=== PATIENT | male | born 1955 | race Caucasian/White ===

== ENCOUNTER → 2017-01-20 | Outpatient (REF) | payer SELFPAY ==
[~2017-01-20] VITALS: Ht 188 cm; Wt 88.6 kg
[~2017-01-20] MED LIST: ASPI-586 PO; CIPROFLOXACIN (CIPRO) 500 MG TABLET PO ONE; OXYM30MI NS
== END ==
LOC: EUOP 23:55
PROVIDERS: ATTEND Internal Medicine
DX: N45.1 Epididymitis (principal)